=== PATIENT | male | born 1975 | race Caucasian/White ===

== ENCOUNTER 2017-05-09 14:12 | Emergency (ER) | payer BC, MEDICAID ==
[~2017-05-09] VITALS: Ht 175.3 cm; Wt 106.6 kg
[2017-05-09 15:49] VITALS: BP 126/90
== END 2017-05-09 16:47 | disposition home or self-care (01) ==
LOC: ER 14:12
DX: S39.012A Strain of muscle, fascia and tendon of lower back, initial encounter (principal); M47.896 Other spondylosis, lumbar region; G89.29 Other chronic pain; J45.909 Unspecified asthma, uncomplicated; X50.0XXA Overexertion from strenuous movement or load, initial encounter; Y93.89 Activity, other specified; Y99.8 Other external cause status; Y92.89 Other specified places as the place of occurrence of the external cause
CPT/HCPCS: 72100